=== PATIENT | male | born 2000 | race Caucasian/White ===

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

== ENCOUNTER 2022-01-13 20:46 | Emergency (ER) | payer OTHER ==
[~2022-01-13] VITALS: Ht 172.7 cm; Wt 62.4 kg
[2022-01-13] MEDS ORDERED: PARO20TA3 (20:55)
[2022-01-13 22:54] LABS: BASO % 0.4 % (0.0-1.0); EOS # 0.1 10^3/uL (0.0-0.5); EOS % 1.1 % (0.0-3.0); HEMATOCRIT 49.5 % (42.0-52.0); HEMOGLOBIN 16.3 g/dl (13.5-17.5); LYMPH # 1.5 10^3/uL (1.5-5.0); LYMPH % 27.6 % (24.0-44.0); MEAN CORPUSCULAR HEMOGLOBIN 29.7 pg (27.0-33.0); MEAN CORPUSCULAR HGB CONC 32.9 g/dl (32.0-36.5); MEAN CORPUSCULAR VOLUME 90.3 fl (80.0-96.0); MONO # 0.5 10^3/uL (0.0-0.8); MONO % 9.9 % (2.0-8.0); NEUTROPHILS # 3.3 10^3/uL (1.5-8.5); NEUTROPHILS % 60.8 % (36.0-66.0); PLATELET COUNT, AUTOMATED 288 10^3/uL (150-450); RED BLOOD COUNT 5.48 10^6/uL (4.30-6.10); WHITE BLOOD COUNT 5.5 10^3/uL (4.0-10.0)
[2022-01-13 23:28] LABS: CPK CREATINE PHOSPHOKINASE 103 U/L (39-308); MB/CK RELATIVE INDEX 0.97 (< OR =4)
[2022-01-13 23:29] LABS: ALBUMIN 3.8 GM/DL (3.2-5.2); ALT/SGPT 25 U/L (12-78); BILIRUBIN,TOTAL 0.3 MG/DL (0.2-1.0); BLOOD UREA NITROGEN 10 MG/DL (7-18); CALCIUM LEVEL 9.1 MG/DL (8.5-10.1); CARBON DIOXIDE LEVEL 30 MEQ/L (21-32); CHLORIDE LEVEL 106 MEQ/L (98-107); CREATININE FOR GFR 0.79 MG/DL (0.70-1.30); GLUCOSE, FASTING 94 MG/DL (70-100); LIPASE 94 U/L (73-393); POTASSIUM SERUM 4.4 MEQ/L (3.5-5.1); SODIUM LEVEL 139 MEQ/L (136-145); TOTAL PROTEIN 7.2 GM/DL (6.4-8.2)
[2022-01-13] MEDS ORDERED: ISOVUE-370 76% 100ML VIAL As Ordered ONE (23:59)
[2022-01-14 00:36] VITALS: BP 117/66
== END 2022-01-14 01:22 | disposition home or self-care (01) ==
LOC: M ED 20:46
DX: R07.89 Other chest pain (principal); K59.00 Constipation, unspecified; R10.9 Unspecified abdominal pain; J02.9 Acute pharyngitis, unspecified; R51.9 Headache, unspecified; F41.9 Anxiety disorder, unspecified; Z88.8 Allergy status to other drugs, medicaments and biological substances; Z79.899 Other long term (current) drug therapy
CPT/HCPCS: 36415; 71275; 74177; 80053; 82550; 82553; 83690; 85025; 87486; 87581; 87633; 87798; 93005; 99284; Q9967

== ENCOUNTER 2023-05-09 14:24 | Emergency (ER) | payer OTHER ==
[~2023-05-09] VITALS: Ht 170.2 cm; Wt 75.5 kg
[~2023-05-09 14:24] MED LIST changes: +PARO20TA3
[2023-05-09] MEDS ORDERED: BACT800T5 PO (17:44)
[2023-05-09] MEDS ORDERED: HYDR25OIN TOP (17:47)
[2023-05-09 17:52] VITALS: BP 130/78; TEMP 98.3; O2SAT 96
== END 2023-05-09 17:53 | disposition home or self-care (01) ==
LOC: M ED 14:24
DX: H60.13 Cellulitis of external ear, bilateral (principal)

== ENCOUNTER 2024-02-26 11:58 | Emergency (ER) | payer OTHER ==
[~2024-02-26] VITALS: Ht 175.3 cm; Wt 73.7 kg
[~2024-02-26 11:58] MED LIST changes: +BACT800T5 PO; +HYDR25OIN TOP
[2024-02-26 15:31] VITALS: BP 166/90; TEMP 97.2; O2SAT 98
== END 2024-02-26 15:32 | disposition home or self-care (01) ==
LOC: M ED 11:58
DX: S60.453A Superficial foreign body of left middle finger, initial encounter (principal); X58.XXXA Exposure to other specified factors, initial encounter; Y92.9 Unspecified place or not applicable; Y93.9 Activity, unspecified; Y99.9 Unspecified external cause status; Z88.1 Allergy status to other antibiotic agents

== ENCOUNTER → 2024-04-13 | Outpatient (REF) | payer OTHER | LOC: M SFHCADAM 12:43 | PROVIDERS: ATTEND Family Medicine | DX: R05.1 Acute cough (principal) ==

== ENCOUNTER → 2024-09-06 | Outpatient (CLI) | payer OTHER | LOC: M SOG 07:45 | PROVIDERS: ATTEND Physician Assistant | DX: Z53.9 Procedure and treatment not carried out, unspecified reason (principal) ==